=== PATIENT | female | born 1945 ===

== ENCOUNTER 2022-01-18 07:45 | Inpatient (IN) | payer OTHER ==
[~2022-01-18] VITALS: Ht 157.5 cm; Wt 65.8 kg
[2022-02-14] MEDS ORDERED: ULTRACET PO (08:33)
[2022-02-14] MEDS ORDERED: INTESTINEX680 M1 PO (08:34)
== END 2022-02-14 15:21 | disposition home or self-care (01) | DRG 331 ==
LOC: EDSTATUS 07:45 → ADM 07:45 → SURG 01-23 07:45 → SURH 02-13 07:21 → O/R 02-13 07:21 → SURH 02-13 15:38
PROVIDERS: ADMIT Surgery; ATTEND Surgery
PROC: 0DTH4ZZ Resection of Cecum, Percutaneous Endoscopic Approach (ICD-10-PCS; principal; 2022-02-13 12:30)
DX: D12.1 Benign neoplasm of appendix (principal); Z20.822 Contact with and (suspected) exposure to COVID-19